=== PATIENT | male | born 1965 | race American Indian/Alaskan Native ===

== ENCOUNTER 2016-05-22 02:58 | Emergency (ER) | payer SELFPAY ==
[2016-05-22 03:05] VITALS: BP 122/85
--- NOTE | 2016-05-23 01:22 | ED Elopement Review ---
ED Pt Elopement review - Results review Lab results: Laboratory Tests 05/22/16 03:32 POC Glucose 85 - Call Back decision Pt Call Back Decision: Pt to F/U with PMD (saad schmitt,)
== END 2016-05-22 03:40 | disposition left against medical advice (07) ==
LOC: ED 02:58
DX: H53.8 Other visual disturbances (principal); Z53.21 Procedure and treatment not carried out due to patient leaving prior to being seen by health care provider
CPT/HCPCS: 82962

== ENCOUNTER 2016-07-08 12:21 | Emergency (ER) | payer SELFPAY ==
[2016-07-08 13:00] VITALS: BP 116/78
--- NOTE | 2016-07-08 16:52 | Emergency Department Report ---
ED Medical Clearance HPI - General Chief complaint: Medical Clearance Stated complaint: MEDS REFILL/BLURRED VISION Time Seen by Provider: 07/08/16 16:24 Source: patient Mode of arrival: Ambulatory - History of Present Illness Initial comments: 50-year-old male past medical history diabetes type 2, diabetic peripheral neuropathy presents with complaint of blurry vision for one week and right toe pain. Patient is awake alert and oriented 3 does not appear to be in any acute distress sitting comfortably and calmly in examination room. States that he has been having intermittent Fatoumata tingly feeling and distal right great toe for several weeks. States that it is slightly swollen now. Also states he has intermittent blurry vision and increased urinary output. Patient states he has not had any of his diabetes medicines and over 2 weeks. Patient states his last hemoglobin A1c was over 7% 1 year ago which was the last time he followed up with primary care. Denies any direct trauma to foot any trauma to head. Does not wear glasses. Alledged Intoxication: No Compliant with Home Medications: No (has not had any diabetes medicines in over 2 weeks) Traumatic Symptoms: denies traumatic injury Associated Symptoms: other (blurry vision) Home medications: Previous Rx's Medication Instructions Recorded Last Taken Type Cephalexin [Keflex] 500 mg PO Q8HR #20 cap 02/29/16 Unknown Rx Pregabalin [Lyrica] 25 mg PO TID #60 cap 07/08/16 Unknown Rx glipiZIDE [Glucotrol] 10 mg PO DAILY #30 tablet 07/08/16 Unknown Rx metFORMIN [Glucophage] 1,000 mg PO BID #120 tablet 07/08/16 Unknown Rx Allergies/Adverse reactions: Allergies Allergy/AdvReac Type Severity Reaction Status Date / Time No Known Allergies Allergy Unverified 11/09/14 04:12 ED Review of Systems ROS: Stated complaint: MEDS REFILL/BLURRED VISION Other details as noted in HPI Constitutional: denies: chills, fever Eyes: vision change (patient complaining of intermittently blurry vision one week). denies: eye pain, eye discharge ENT: denies: ear pain, throat pain Respiratory: denies: cough, shortness of breath, wheezing Cardiovascular: denies: chest pain, palpitations Endocrine: no symptoms reported Gastrointestinal: denies: abdominal pain, nausea, diarrhea Genitourinary: denies: urgency, dysuria Musculoskeletal: other (mild right distal toe pain with tingling sensation worse at night for over one year). denies: back pain, joint swelling, arthralgia Skin: denies: rash, lesions Neurological: denies: headache, weakness, paresthesias Psychiatric: denies: anxiety, depression Hematological/Lymphatic: denies: easy bleeding, easy bruising ED Past Medical Hx - Past Medical History Hx Diabetes: Yes (type 2) - Surgical History Past Surgical History?: No - Social History Smoking Status: Current Every Day Smoker Substance Use Type: None - Medications Home Medications: Home Medications Medication Instructions Recorded Confirmed Last Taken Type Cephalexin [Keflex] 500 mg PO Q8HR #20 cap 02/29/16 Unknown Rx Pregabalin [Lyrica] 25 mg PO TID #60 cap 07/08/16 Unknown Rx glipiZIDE [Glucotrol] 10 mg PO DAILY #30 tablet 07/08/16 Unknown Rx metFORMIN [Glucophage] 1,000 mg PO BID #120 tablet 07/08/16 Unknown Rx ED Physical Exam - General Limitations: No Limitations General appearance: alert, in no apparent distress - Head Head exam: Present: atraumatic, normocephalic - Eye Eye exam: Present: normal appearance, PERRL, EOMI - ENT ENT exam: Present: mucous membranes moist - Neck Neck exam: Present: normal inspection - Respiratory Respiratory exam: Present: normal lung sounds bilaterally. Absent: respiratory distress - Cardiovascular Cardiovascular Exam: Present: regular rate, normal rhythm. Absent: systolic murmur, diastolic murmur, rubs, gallop - GI/Abdominal GI/Abdominal exam: Present: soft, normal bowel sounds - Rectal Rectal exam: Present: deferred - Extremities Exam Extremities exam: Present: normal inspection - Back Exam Back exam: Present: normal inspection - Neurological Exam Neurological exam: Present: alert, oriented X3, CN II-XII intact, normal gait - Expanded Neurological Exam Expanded Cerebellar function: Finger to Nose: Normal, Heel to Metcalf: Normal, Romberg: Normal Sensory exam: Upper Extremity Light Touch: Normal, Upper Extremity Pin Prick: Normal, Lower Extremity Light Touch: Normal, Lower Extremity Pin Prick: Normal Motor strength exam: RUE: 5, LUE: 5, RLE: 5, LLE: 5 Best Eye Response (Ewa): (4) open spontaneously Best Motor Response (Ewa): (6) obeys commands Best Verbal Response (Rosebud): (5) oriented Ewa Total: 15 - Psychiatric Psychiatric exam: Present: normal affect, normal mood - Skin Skin exam: Present: warm, dry, intact, normal color. Absent: rash ED Course Vital Signs 07/08/16 12:57 Temperature 98.2 F Pulse Rate 105 H Blood Pressure 116/78 O2 Sat by Pulse 100 Oximetry ED Medical Decision Making - Medical Decision Making A/P: Hyperglycemia, uncontrolled diabetes Type 2 1-I explained to the patient has fingerstick glucose is high and because he told me he has not had any care for his diabetes in over one year and his hemoglobin A1c was over 7 over 1 year ago and he has not consistently been taking his metformin and Glucophage that with blurry vision he may be exhibiting symptomatic hyperglycemia due to uncontrolled diabetes. Patient stated that he understood my concern but that he does not want to currently do any blood work or an x-ray of his toe. I explained to the patient that I'm concerned he may have a toe infection. Patient expressed understanding of my concern TAYLOR Mendes was present for this conversation. I explained to the patient that there is a risk of infection complications of diabetes including diabetic coma and . Pt expressed clear understanding of my concern voiced that he has somewhere to be this evening and cannot stay for further workup is primarily requesting refills on his diabetes medicines and Lyrica. I advised the patient to follow up as soon as possible with her primary care doctor and provided one month's worth of diabetes medicine and advised patient heavily to follow up as soon as possible or to return to the ED if he experiences headache chest pain palpitations fever or chills paresthesias severe weakness etc. 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 Qualified Code(s): E11.65 - Type 2 diabetes mellitus with hyperglycemia Disposition: LEFT AGAINST MEDICAL ADVICE Is pt being admited?: No Does the pt Need Aspirin: No Condition: Undetermined Instructions: Against Medical Advice (ED), Diabetic Hyperglycemia (ED), Diabetic Neuropathy (ED) Prescriptions: glipiZIDE [Glucotrol] 10 mg PO DAILY #30 tablet metFORMIN [Glucophage] 1,000 mg PO BID #120 tablet Pregabalin [Lyrica] 25 mg PO TID #60 cap Referrals: ROEL SPENCER MD [Staff Physician] - 3-5 Days [facility] [Outside] - 3-5 Days [facility] [Provider Group] - 3-5 Days Forms: Work/School Release Form(ED), AMA Form Time of Disposition: 17:17
[2016-07-08] MEDS ORDERED: GLUCOPHAGE PO ONE (16:54)
== END 2016-07-08 17:26 | disposition left against medical advice (07) ==
LOC: ED 12:21
DX: E11.65 Type 2 diabetes mellitus with hyperglycemia (principal); F17.200 Nicotine dependence, unspecified, uncomplicated
CPT/HCPCS: 82962; 99283

== ENCOUNTER 2016-08-23 21:50 | Emergency (ER) | payer MEDICAID, OTHER ==
--- NOTE | 2016-08-24 02:18 | Emergency Department Report ---
HPI - General Chief Complaint: Medical Clearance Time Seen by Provider: 08/24/16 01:57 - HPI HPI: The patient is a 51-year-old male with a history of diabetes and diabetic neuropathy, who presents for evaluation of pain to the right great toe. The patient reports 1 week of on and off pain to the right great toe, sharp and at times tingling in quality, 5/10 in severity, exacerbated with weightbearing, and associated with episodes of tingling and numbness in the toe. He states that he has experienced similar symptoms in the past for years. He states that his stools are consistent with long-standing history of diabetic neuropathy. He denies trauma to the right great toe, fever, chills, night sweats, redness, swelling, color change in the toe or foot. ED Past Medical Hx - Past Medical History Hx Diabetes: Yes (type 2) - Social History Smoking Status: Unknown if ever smoked Substance Use Type: None - Medications Home Medications: Home Medications Medication Instructions Recorded Confirmed Last Taken Type Cephalexin [Keflex] 500 mg PO Q8HR #20 cap 02/29/16 Unknown Rx glipiZIDE [Glucotrol] 10 mg PO DAILY #30 tablet 07/08/16 Unknown Rx Pregabalin [Lyrica] 25 mg PO TID #60 cap 08/24/16 Unknown Rx metFORMIN [Glucophage] 1,000 mg PO BID #60 tablet 08/24/16 Unknown Rx ED Review of Systems ROS: Stated complaint: CHECK SUGAR/DIABETIC Other details as noted in HPI Constitutional: denies: fever ENT: denies: throat or neck pain Respiratory: denies: cough, shortness of breath Cardiovascular: denies: chest pain Endocrine: denies unexplained weight loss or gain Gastrointestinal: denies: abdominal pain, nausea Genitourinary: denies: dysuria Musculoskeletal: reports right great toe pain denies: leg swelling Skin: denies: rash Neurological: denies: headache Hematological/Lymphatic: denies: easy bleeding or easy bruising Psych: denies sadness or hopelessness Physical Exam - Physical Exam Vital Signs: Vital Signs 08/23/16 22:54 Temperature 98.5 F Pulse Rate 98 H Respiratory 20 Rate Blood Pressure 114/77 O2 Sat by Pulse 98 Oximetry Physical Exam: General: well-nourished, well-developed, no acute distress Head: Normocephalic, atraumatic Eyes: normal sclera ENT: Mucous membranes are pink and moist Neck: trachea midline, neck supple, No neck stiffness, no cervical adenopathy Respiratory: Breath sounds equal bilaterally, no wheezing, rales, or rhonchi Cardio: S1 and S2 present, no murmurs, rubs, gallops, capillary refill is brisk Musc: Tenderness to palpation presents to the plantar surface of the right great toe, no erythema, warmth, fluctuance, swelling, no sign of infection, No swelling to the foot, distal pulses intact, no color change Skin: No rash Neuro: no facial drooping, normal speech Psych: Normal affect ED Course Vital Signs 08/23/16 22:54 Temperature 98.5 F Pulse Rate 98 H Respiratory 20 Rate Blood Pressure 114/77 O2 Sat by Pulse 98 Oximetry ED Medical Decision Making - Medical Decision Making The patient was seen and examined by myself. On initial evaluation, the patient was found to be in no distress. Evaluation orders were placed. Evaluation findings are consistent with diabetic neuropathy. Patient is given a prescription for Lyrica and refill of his metformin. The patient is stable for discharge with outpatient follow-up. The patient is given follow-up and return instructions. The patient expressed understanding and agreed with the plan. The patient is discharged in stable condition. Critical care attestation.: If time is entered above; I have spent that time in minutes in the direct care of this critically ill patient, excluding procedure time. ED Disposition Clinical Impression: Peripheral neuropathy Qualifiers: Peripheral neuropathy type: mononeuropathy due to underlying disease Qualified Code(s): G59 - Mononeuropathy in diseases classified elsewhere Diabetic neuropathy Qualifiers: Diabetes mellitus type: type 2 Diabetes mellitus complication detail: diabetic mononeuropathy Qualified Code(s): E11.41 - Type 2 diabetes mellitus with diabetic mononeuropathy Disposition: DISCHARGED TO HOME OR SELFCARE Is pt being admited?: No Does the pt Need Aspirin: No Condition: Stable Instructions: Diabetic Neuropathy (ED), Peripheral Neuropathy (ED), Diabetes Mellitus Type 2 in Adults (ED) Prescriptions: metFORMIN [Glucophage] 1,000 mg PO BID #60 tablet Pregabalin [Lyrica] 25 mg PO TID #60 cap Referrals: PRIMARY CARE, [Primary Care Provider] - 3-5 Days Time of Disposition: 02:09
[2016-08-24 02:34] VITALS: BP 134/80
== END 2016-08-24 02:33 | disposition home or self-care (01) ==
LOC: ED 21:50
DX: E11.41 Type 2 diabetes mellitus with diabetic mononeuropathy (principal)
CPT/HCPCS: 82962; 99282

== ENCOUNTER 2016-11-20 20:12 | Emergency (ER) | payer SELFPAY | END 2016-11-20 20:20 | disposition left against medical advice (07) | LOC: ED 20:12 | DX: Z53.21 Procedure and treatment not carried out due to patient leaving prior to being seen by health care provider (principal) ==

== ENCOUNTER 2016-11-26 11:49 | Emergency (ER) | payer MEDICAID ==
[2016-11-26 12:44] LABS: Hematocrit 46.1 % (35.5-45.6); Hemoglobin 15.3 gm/dl (11.8-15.2); Mean Corpuscular HGB Conc 33 % (32-34); Mean Corpuscular Hemoglobin 27 pg (28-32); Mean Corpuscular Volume 82 fl (84-94); Platelet Count 252 K/mm3 (140-440); Red Blood Count 5.59 M/mm3 (3.65-5.03); Red Cell Distribution Width 13.4 % (13.2-15.2); White Blood Count 5.4 K/mm3 (4.5-11.0)
[2016-11-26 13:00] LABS: Anion Gap 16 mmol/L; BUN/Creatinine Ratio 13.63; Blood Urea Nitrogen 15 mg/dL (9-20); Calcium 8.2 mg/dL (8.4-10.2); Carbon Dioxide 23 mmol/L (22-30); Chloride 101.5 mmol/L (98-107); Glucose 173 mg/dL (75-100); Potassium 4.1 mmol/L (3.6-5.0); Sodium 136 mmol/L (137-145)
--- NOTE | 2016-11-26 13:32 | Emergency Department Report ---
ED General Adult HPI - General Chief complaint: Extremity Injury, Upper Stated complaint: STIFFNESS IN FINGERS AND TOES Time Seen by Provider: 11/26/16 12:57 Source: patient Mode of arrival: Ambulatory Limitations: No Limitations - History of Present Illness Initial comments: Patient is a 51-year-old male past history of diabetes and neuropathy who presents with arm finger and toe pain that's been going on for the last month. Patient states that pain is a 7 out of 10. It is at electrical shock type pain it is constant it doesn't radiate nothing makes it better or worse. He states that he is talked to his doctor about his symptoms and that gabapentin makes it worse. Patient states that he was going to take Lyrica for the pain but he lost his insurance. Patient denies having any other complaints other than his neuropathy. - Related Data Previous Rx's Medication Instructions Recorded Last Taken Type Cephalexin [Keflex] 500 mg PO Q8HR #20 cap 02/29/16 Unknown Rx Pregabalin [Lyrica] 25 mg PO TID #60 cap 08/24/16 Unknown Rx glipiZIDE [Glucotrol] 10 mg PO DAILY #30 tablet 08/24/16 Unknown Rx metFORMIN [Glucophage] 1,000 mg PO BID #60 tablet 08/24/16 Unknown Rx Pregabalin [Lyrica] 25 mg PO TID #30 cap 11/26/16 Unknown Rx Allergies Allergy/AdvReac Type Severity Reaction Status Date / Time No Known Allergies Allergy Unverified 11/09/14 04:12 ED Review of Systems ROS: Stated complaint: STIFFNESS IN FINGERS AND TOES Other details as noted in HPI Constitutional: denies: chills, fever Eyes: denies: eye pain, eye discharge, vision change ENT: denies: ear pain, throat pain Respiratory: denies: cough, shortness of breath, wheezing Cardiovascular: denies: chest pain, palpitations Endocrine: no symptoms reported Gastrointestinal: denies: abdominal pain, nausea, diarrhea Genitourinary: denies: urgency, dysuria Musculoskeletal: denies: back pain, joint swelling, arthralgia Skin: denies: rash, lesions Neurological: paresthesias, other (neuropathy). denies: headache, weakness Psychiatric: denies: anxiety, depression Hematological/Lymphatic: denies: easy bleeding, easy bruising ED Past Medical Hx - Past Medical History Hx Diabetes: Yes (type 2) - Social History Smoking Status: Former Smoker Substance Use Type: Alcohol - Medications Home Medications: Home Medications Medication Instructions Recorded Confirmed Last Taken Type Cephalexin [Keflex] 500 mg PO Q8HR #20 cap 02/29/16 Unknown Rx Pregabalin [Lyrica] 25 mg PO TID #60 cap 08/24/16 Unknown Rx glipiZIDE [Glucotrol] 10 mg PO DAILY #30 tablet 08/24/16 Unknown Rx metFORMIN [Glucophage] 1,000 mg PO BID #60 tablet 08/24/16 Unknown Rx Pregabalin [Lyrica] 25 mg PO TID #30 cap 11/26/16 Unknown Rx ED Physical Exam - General Limitations: No Limitations General appearance: alert, in no apparent distress - Head Head exam: Present: atraumatic, normocephalic - Eye Eye exam: Present: normal appearance - ENT ENT exam: Present: mucous membranes moist - Neck Neck exam: Present: normal inspection - Respiratory Respiratory exam: Present: normal lung sounds bilaterally. Absent: respiratory distress - Cardiovascular Cardiovascular Exam: Present: regular rate, normal rhythm. Absent: systolic murmur, diastolic murmur, rubs, gallop - GI/Abdominal GI/Abdominal exam: Present: soft, normal bowel sounds - Rectal Rectal exam: Present: deferred - Extremities Exam Extremities exam: Present: normal inspection - Back Exam Back exam: Present: normal inspection - Neurological Exam Neurological exam: Present: alert, oriented X3, CN II-XII intact, other ( decreased 2 point sensation in fingers and toes bilaterally patient has 2+ pulses in all 4 extremities) - Psychiatric Psychiatric exam: Present: normal affect, normal mood - Skin Skin exam: Present: warm, dry, intact, normal color. Absent: rash ED Course Vital Signs 11/26/16 11/26/16 12:14 14:00 Temperature 98.4 F Pulse Rate 77 90 Respiratory 18 18 Rate Blood Pressure 115/78 Blood Pressure 110/65 [Left] O2 Sat by Pulse 96 99 Oximetry ED Medical Decision Making - Lab Data Result diagrams: 11/26/16 12:27 11/26/16 12:27 Lab Results 11/26/16 11/26/16 11/26/16 Range/Units 12:22 12:27 12:27 WBC 5.4 (4.5-11.0) K/mm3 RBC 5.59 H (3.65-5.03) M/mm3 Hgb 15.3 H (11.8-15.2) gm/dl Hct 46.1 H (35.5-45.6) % MCV 82 L (84-94) fl MCH 27 L (28-32) pg MCHC 33 (32-34) % RDW 13.4 (13.2-15.2) % Plt Count 252 (140-440) K/mm3 Sodium 136 L (137-145) mmol/L Potassium 4.1 (3.6-5.0) mmol/L Chloride 101.5 (98-107) mmol/L Carbon Dioxide 23 (22-30) mmol/L Anion Gap 16 mmol/L BUN 15 (9-20) mg/dL Creatinine 1.1 (0.8-1.5) mg/dL Estimated GFR > 60 ml/min BUN/Creatinine Ratio 13.63 % Glucose 173 H (75-100) mg/dL POC Glucose 166 H (70-105) Calcium 8.2 L (8.4-10.2) mg/dL Magnesium 2.10 (1.7-2.3) mg/dL - Medical Decision Making Chief medical diagnosis: Diabetic neuropathy Differential medical diagnosis: Hyponatremia, hypokalemia, hypoglycemia CBC, CMP, magnesium and will give patient oral analgesic medication Due to patient have chronic neuropathy I will give patient a short course of Lyrica since he states that gabapentin doesn't work for him. His laboratory findings are unremarkable. Gait patient return precautions to come back to the ER. And also gave additional verbal discharge instructions. Patient agrees with plan. Will give patient a referral for PCP. Critical care attestation.: If time is entered above; I have spent that time in minutes in the direct care of this critically ill patient, excluding procedure time. ED Disposition Clinical Impression: Neuropathy, Polycythemia Disposition: DC- TO HOME OR SELFCARE Is pt being admited?: No Does the pt Need Aspirin: No Condition: Stable Instructions: Diabetic Neuropathy (ED), Peripheral Neuropathy (ED) Prescriptions: Pregabalin [Lyrica] 25 mg PO TID #30 cap Referrals: [facility] [Outside] - 3-5 Days PRIMARY CARE, [Primary Care Provider] - 3-5 Days GUI LARRY MD [Staff Physician] - 3-5 Days Time of Disposition: 13:30
[2016-11-26 14:16] VITALS: BP 110/65
== END 2016-11-26 14:00 | disposition home or self-care (01) ==
LOC: ED 11:49
DX: G62.9 Polyneuropathy, unspecified (principal); D75.1 Secondary polycythemia; E11.9 Type 2 diabetes mellitus without complications; Z87.891 Personal history of nicotine dependence
CPT/HCPCS: 36415; 80048; 82962; 83735; 85027; 99283

== ENCOUNTER 2016-12-15 17:14 | Emergency (ER) | payer SELFPAY | END 2016-12-15 17:15 | disposition left against medical advice (07) | LOC: ED 17:14 | DX: Z53.21 Procedure and treatment not carried out due to patient leaving prior to being seen by health care provider (principal) ==

== ENCOUNTER 2016-12-18 12:54 | Emergency (ER) | payer SELFPAY ==
[2016-12-18 13:33] VITALS: BP 124/88
[2016-12-18 15:04] LABS: Basophils % (Auto) 0.6 % (0.0-1.8); Eosinophils % (Auto) 0.7 % (0.0-4.3); Hematocrit 50.2 % (35.5-45.6); Hemoglobin 16.5 gm/dl (11.8-15.2); Mean Corpuscular HGB Conc 33 % (32-34); Mean Corpuscular Hemoglobin 28 pg (28-32); Mean Corpuscular Volume 85 fl (84-94); Platelet Count 237 K/mm3 (140-440); Red Blood Count 5.94 M/mm3 (3.65-5.03); Red Cell Distribution Width 13.9 % (13.2-15.2); White Blood Count 8.2 K/mm3 (4.5-11.0)
[2016-12-18 15:13] LABS: Anion Gap 17 mmol/L; Blood Urea Nitrogen 11 mg/dL (9-20); Calcium 8.8 mg/dL (8.4-10.2); Carbon Dioxide 21 mmol/L (22-30); Chloride 98.3 mmol/L (98-107); Glucose 318 mg/dL (75-100); Potassium 4.5 mmol/L (3.6-5.0); Sodium 132 mmol/L (137-145)
[2016-12-18 15:15] LABS: Bilirubin,Urine NEG (Negative); Blood,Urine NEG (Negative); Ketones,Urine NEG (Negative); Leukocyte Esterase,Urine NEG (Negative); Mucus,Urine FEW /HPF; Nitrite,Urine NEG (Negative); Protein,Urine <15 mg/dL mg/dL (Negative); Urobilinogen,Urine < 2.0 mg/dL (<2.0); WBC,Urine < 1.0 /HPF (0.0-6.0)
== END 2016-12-18 18:22 | disposition left against medical advice (07) ==
LOC: ED 12:54
DX: Z53.21 Procedure and treatment not carried out due to patient leaving prior to being seen by health care provider (principal)
CPT/HCPCS: 36415; 80048; 81001; 82805; 82962; 85025

== ENCOUNTER 2017-05-11 17:40 | Emergency (ER) | payer MEDICAID ==
[2017-05-11 18:40] LABS: Basophils % (Auto) 0.8 % (0.0-1.8); Eosinophils # (Auto) 0.1 K/mm3 (0.0-0.4); Eosinophils % (Auto) 1.5 % (0.0-4.3); Hematocrit 48.9 % (35.5-45.6); Hemoglobin 16.3 gm/dl (11.8-15.2); Lymphocytes # (Auto) 1.6 K/mm3 (1.2-5.4); Lymphocytes % (Auto) 31.1 % (13.4-35.0); Mean Corpuscular HGB Conc 33 % (32-34); Mean Corpuscular Hemoglobin 27 pg (28-32); Mean Corpuscular Volume 81 fl (84-94); Monocytes # (Auto) 0.4 K/mm3 (0.0-0.8); Monocytes % (Auto) 8.2 % (0.0-7.3); Platelet Count 223 K/mm3 (140-440); Red Blood Count 6.01 M/mm3 (3.65-5.03); Red Cell Distribution Width 13.2 % (13.2-15.2)
[2017-05-11 18:52] LABS: Bilirubin,Urine NEG (Negative); Blood,Urine NEG (Negative); Color,Urine Red (Yellow); Mucus,Urine FEW /HPF; Nitrite,Urine NEG (Negative); Protein,Urine <15 mg/dL mg/dL (Negative); Urobilinogen,Urine < 2.0 mg/dL (<2.0); WBC,Urine < 1.0 /HPF (0.0-6.0)
[2017-05-11 18:56] LABS: BUN/Creatinine Ratio 16; Blood Urea Nitrogen 18 mg/dL (9-20); Calcium 8.9 mg/dL (8.4-10.2); Hemolysis Index 36
[2017-05-11] MEDS ORDERED: NACL 0.9% 1000 ML 2,000 ML IV ONE (21:05)
--- NOTE | 2017-05-11 22:50 | Emergency Department Report ---
HPI - General Chief Complaint: Hyperglycemia Time Seen by Provider: 05/11/17 21:04 - HPI HPI: The patient is a 51-year-old male with a history of diabetes, who presents for evaluation of generalized weakness. The patient states that for the past one to 2 weeks she has been progressive generalized weakness, currently mild in severity, exacerbated with exertion, improved with rest, and associated with polyuria and polydipsia. He admits to noncompliance with diabetic medications. He states he has been out of them for many months. The patient denies fever, chills, night sweats, diarrhea, blood in the stool, dark tarry stool, dysuria, hematuria, flank pain, genital discharge, inability to pass flatus. ED Past Medical Hx - Past Medical History Previous Medical History?: Yes Hx Diabetes: Yes (type 2) - Surgical History Past Surgical History?: No - Social History Smoking Status: Current Every Day Smoker Substance Use Type: Alcohol, Marijuana, Prescribed - Medications Home Medications: Home Medications Medication Instructions Recorded Confirmed Last Taken Type Cephalexin [Keflex] 500 mg PO Q8HR #20 cap 02/29/16 Unknown Rx Pregabalin [Lyrica] 25 mg PO TID #60 cap 08/24/16 Unknown Rx Pregabalin [Lyrica] 25 mg PO TID #30 cap 11/26/16 Unknown Rx glipiZIDE [Glucotrol] 10 mg PO DAILY #30 tablet 05/12/17 Unknown Rx metFORMIN [Glucophage] 500 mg PO BID #60 tablet 05/12/17 Unknown Rx ED Review of Systems ROS: Stated complaint: BLURRED VISION Other details as noted in HPI Constitutional: reports weakness denies: fever ENT: denies: throat or neck pain Respiratory: denies: cough, shortness of breath Cardiovascular: denies: chest pain Endocrine: denies unexplained weight loss or gain Gastrointestinal: denies: abdominal pain, nausea Genitourinary: reports polyuria denies: dysuria Musculoskeletal: denies: leg swelling Skin: denies: rash Neurological: denies: headache Hematological/Lymphatic: denies: easy bleeding or easy bruising Psych: denies sadness or hopelessness Physical Exam - Physical Exam Vital Signs: Vital Signs 05/11/17 17:50 Temperature 97.4 F L Pulse Rate 86 Respiratory 20 Rate Blood Pressure 116/81 O2 Sat by Pulse 96 Oximetry Physical Exam: General: well-nourished, well-developed, no acute distress Head: Normocephalic, atraumatic Eyes: normal sclera ENT: Mucous membranes are pale and dry Neck: trachea midline, neck supple, No neck stiffness, no cervical adenopathy Respiratory: Breath sounds equal bilaterally, no wheezing, rales, or rhonchi Cardio: S1 and S2 present, no murmurs, rubs, gallops, capillary refill is delayed Abdomen: Normoactive bowel sounds, soft abdomen, no rigidity, no guarding or rebound tenderness Musc: No pitting edema Skin: No rash Neuro: no facial drooping, normal speech Psych: Normal affect ED Course Vital Signs 05/11/17 17:50 Temperature 97.4 F L Pulse Rate 86 Respiratory 20 Rate Blood Pressure 116/81 O2 Sat by Pulse 96 Oximetry ED Medical Decision Making - Lab Data Result diagrams: 05/11/17 18:20 05/11/17 18:20 - Medical Decision Making The patient was seen and examined by myself. The patient is placed on a child & adolescent psychiatrist and continuous pulse ox. On initial evaluation, the patient was found to be in no distress. Evaluation orders were placed. The patient is given normal saline fluid boluses for treatment of hyperglycemia and dehydration. Lab results revealed elevated glucose of 560 of normal venous pH and normal bicarbonate, not consistent with DKA, . The patient is given a 10unit IV insulin bolus for treatment of hyperglycemia as well. The patient was reevaluated and reported that their symptoms were markedly improved. The patient's blood sugars now less than 250. The patient is stable for discharge with outpatient follow-up. The patient is given follow-up and return instructions. The patient expressed understanding and agreed with the plan. The patient is discharged in stable condition. Critical care attestation.: If time is entered above; I have spent that time in minutes in the direct care of this critically ill patient, excluding procedure time. ED Disposition Clinical Impression: Acute hyperglycemia, Dehydration, Generalized weakness Disposition: DC-01 TO HOME OR SELFCARE Is pt being admited?: No Does the pt Need Aspirin: No Condition: Stable Instructions: Dehydration (ED), Diabetes Mellitus Type 2 in Adults (ED), Diabetic Hyperglycemia (ED) Prescriptions: glipiZIDE [Glucotrol] 10 mg PO DAILY #30 tablet metFORMIN [Glucophage] 500 mg PO BID #60 tablet Referrals: PRIMARY CARE, [Primary Care Provider] - 3-5 Days Time of Disposition: 22:46
[2017-05-12 03:00] VITALS: BP 126/86
== END 2017-05-12 02:10 | disposition home or self-care (01) ==
LOC: ED 17:40
DX: E11.65 Type 2 diabetes mellitus with hyperglycemia (principal); E86.0 Dehydration; R53.1 Weakness; F17.200 Nicotine dependence, unspecified, uncomplicated; F12.10 Cannabis abuse, uncomplicated
CPT/HCPCS: 36415; 80048; 81001; 82805; 82962; 85025; 99284; J7030; J1815

== ENCOUNTER 2017-07-30 16:21 | Emergency (ER) | payer MEDICAID ==
[2017-07-30 16:51] VITALS: BP 126/81
--- NOTE | 2017-07-30 17:23 | Emergency Department Report ---
ED General Adult HPI - General Chief complaint: Hyperglycemia Stated complaint: DIABECTIC COMPLICATIONS Time Seen by Provider: 07/30/17 16:59 Source: patient Mode of arrival: Ambulatory Limitations: No Limitations - History of Present Illness Initial comments: Patient is 51 years old male history of diabetes. He is taking Glucophage 1000 twice a day and glipizide 10 mg daily. Patient stated that he is out of his medication for one week. He presented to the ER asking for prescription refills and stating that he is having generalized weakness for the last few days. Patient denied any chest pain or shortness of breath. Patient is Saying that he just wanted his medication refills and he'll be fine. I discussed thoroughly with him that he needed to be further evaluated with blood work and urine x-rays and he needs fluids and insulin but patient refused all this recommendation. Patient is alert oriented 3 and he is able to make his own decision. Patient refused fluids, INSULIN and further management. - Related Data Previous Rx's Medication Instructions Recorded Last Taken Type Cephalexin [Keflex] 500 mg PO Q8HR #20 cap 02/29/16 Unknown Rx Pregabalin [Lyrica] 25 mg PO TID #60 cap 08/24/16 Unknown Rx Pregabalin [Lyrica] 25 mg PO TID #30 cap 11/26/16 Unknown Rx glipiZIDE [Glucotrol] 10 mg PO DAILY #30 tablet 05/12/17 Unknown Rx metFORMIN [Glucophage] 500 mg PO BID #60 tablet 05/12/17 Unknown Rx Allergies Allergy/AdvReac Type Severity Reaction Status Date / Time No Known Allergies Allergy Unverified 11/09/14 04:12 ED Review of Systems ROS: Stated complaint: DIABECTIC COMPLICATIONS Other details as noted in HPI Comment: All other systems reviewed and negative Constitutional: fever Respiratory: denies: cough, orthopnea, shortness of breath, SOB with exertion, wheezing Cardiovascular: denies: chest pain, palpitations, dyspnea on exertion, orthopnea Gastrointestinal: denies: abdominal pain, nausea, vomiting, diarrhea, constipation, hematemesis, melena, hematochezia Genitourinary: denies: urgency, dysuria, hematuria, discharge Musculoskeletal: denies: back pain Neurological: weakness. denies: headache ED Past Medical Hx - Past Medical History Hx Diabetes: Yes (type 2) - Social History Smoking Status: Never Smoker Substance Use Type: None - Medications Home Medications: Home Medications Medication Instructions Recorded Confirmed Last Taken Type Cephalexin [Keflex] 500 mg PO Q8HR #20 cap 02/29/16 Unknown Rx Pregabalin [Lyrica] 25 mg PO TID #60 cap 08/24/16 Unknown Rx Pregabalin [Lyrica] 25 mg PO TID #30 cap 11/26/16 Unknown Rx glipiZIDE [Glucotrol] 10 mg PO DAILY #30 tablet 05/12/17 Unknown Rx metFORMIN [Glucophage] 500 mg PO BID #60 tablet 05/12/17 Unknown Rx ED Physical Exam - General Limitations: No Limitations General appearance: alert, in no apparent distress - Head Head exam: Present: atraumatic, normocephalic, normal inspection - ENT ENT exam: Present: mucous membranes dry - Neck Neck exam: Present: normal inspection, full ROM. Absent: tenderness, meningismus, lymphadenopathy, thyromegaly - Respiratory Respiratory exam: Present: normal lung sounds bilaterally. Absent: respiratory distress, wheezes, rales, rhonchi, chest wall tenderness, accessory muscle use - Cardiovascular Cardiovascular Exam: Present: tachycardia - GI/Abdominal GI/Abdominal exam: Present: soft, normal bowel sounds. Absent: distended, tenderness, guarding, rebound, rigid, mass, bruit, pulsatile mass - Extremities Exam Extremities exam: Present: normal inspection, full ROM, normal capillary refill - Back Exam Back exam: Present: normal inspection, full ROM. Absent: tenderness, CVA tenderness (R), CVA tenderness (L), muscle spasm, paraspinal tenderness, vertebral tenderness - Neurological Exam Neurological exam: Present: alert, oriented X3, CN II-XII intact, normal gait - Skin Skin exam: Present: warm, dry, intact ED Course Vital Signs 07/30/17 16:48 Temperature 99.7 F H Pulse Rate 113 H Respiratory 20 Rate Blood Pressure 126/81 O2 Sat by Pulse 99 Oximetry Critical care attestation.: If time is entered above; I have spent that time in minutes in the direct care of this critically ill patient, excluding procedure time. ED Disposition Clinical Impression: Hyperglycemia due to type 2 diabetes mellitus, Weakness, Fever Disposition: LEFT AGAINST MED ADVICE Is pt being admited?: No Condition: Stable Instructions: Diabetes Mellitus Type 2 in Adults (ED) Additional Instructions: Your condition required further evaluation and treatment which include intravenous fluids, insulin, blood work and urine tests and x-rays EKG but you elected to leave without it. Please return to the ER or go to another ER if his symptoms getting more severe.
== END 2017-07-30 17:52 | disposition left against medical advice (07) ==
LOC: ED 16:21
DX: E11.65 Type 2 diabetes mellitus with hyperglycemia (principal); Z79.84 Long term (current) use of oral hypoglycemic drugs
CPT/HCPCS: 82962; 99282